=== PATIENT | male | born 1955 | race Caucasian/White ===

== ENCOUNTER 2022-04-13 11:09 | Outpatient (REF) | payer MEDICARE, MEDICAID, SELFPAY ==
[2022-04-13 14:23] LABS: MANUAL DIFF FLAG NO
[2022-04-13 14:30] LABS: Basophils Percent Auto 0.6 % (0-2); Eosinophils Absolute Auto 0.1 X10*3/uL (0.0-0.4); Eosinophils Percent Auto 1.2 % (0-4); Hematocrit 46.3 % (42.0-52.0); Hemoglobin 15.2 g/dl (14.0-18.0); Imm Gran Abs Auto 0.03 X10*3/uL (0.00-0.03); Imm Gran Pct Auto 0.4 % (0.0-0.4); Lymphocytes Percent Auto 26.8 % (20-40); Mean Corpuscular HGB Conc 32.8 g/dl (31.0-36.0); Mean Corpuscular Hemoglobin 29.7 pg (27.0-33.0); Mean Corpuscular Volume 90.4 fL (80.0-98.0); Mean Platelet Volume 9.4 fL (9.4-12.4); Monocytes Absolute Auto 0.6 X10*3/uL (0.1-1.2); Monocytes Percent Auto 8.7 % (2-11); Neutrophils Absolute Auto 4.5 x10*3/uL (2.0-8.3); Neutrophils Percent Auto 62.3 % (45-73); Platelet Count 298 X10*3/uL (160-400); Red Blood Count 5.12 X10*6/uL (4.60-5.80); Red Cell Distribution Width 13.4 % (11.0-16.0); White Blood Count 7.3 X10*3/uL (4.8-10.8)
[2022-04-13 14:49] LABS: Alanine Aminotransferase 24 U/L (0-40); Albumin Level 4.2 g/dL (3.5-5.0); Alkaline Phosphatase 66 U/L (39-117); Anion Gap 14 (12-20); Aspartate Amino Transferase 19 U/L (5-37); Bilirubin Total 0.7 mg/dL (0.0-1.0); Blood Urea Nitrogen 24 mg/dL (9-16); Calcium 9.4 mg/dL (8.4-10.2); Carbon Dioxide 27 mmol/L (22-29); Chloride 104 mmol/L (96-108); Cholesterol 226 mg/dL; Estimated Glomerular Filt Rate > 60; Glucose Fasting 92 mg/dL (60-99); HDL Cholesterol 54 mg/dL; LDL Cholesterol Calculated 165 mg/dl; Potassium 4.2 mmol/L (3.3-5.1); Sodium 141 mmol/L (135-145); Total Protein 7.5 g/dL (6.5-8.0); Triglycerides 39 mg/dL
[2022-04-13 15:13] LABS: Erythrocyte Sedimentation Rate 8 MM/HR (0-15)
[2022-04-13 15:46] LABS: PSA,Total (Free>4and<10) 6.42 ng/mL (0.00-4.00)
[2022-04-14 10:07] LABS: Percent Free Prostate Spec Ag 15 % (calc) (>25); Prostate Specific Ag Total 6.8 ng/mL (< OR = 4.0)
== END 2022-04-13 11:10 | disposition home or self-care (01) ==
LOC: HO.HMGCLDS 11:09
PROVIDERS: PCP Internal Medicine; Visit Provider Internal Medicine
DX: Z12.5 Encounter for screening for malignant neoplasm of prostate (principal); E78.5 Hyperlipidemia, unspecified; R68.84 Jaw pain
CPT/HCPCS: 36415; 80053; 80061; 84153; 84154; 85025; 85652

== ENCOUNTER 2022-04-20 13:30 | Outpatient (REF) | payer MEDICARE, MEDICAID, SELFPAY ==
--- NOTE | ~2022-04-20 | XR_ITS ---
EXAMINATION: XR MANDIBLE CLINICAL INFORMATION: Pain. COMPARISON: None. TECHNIQUE: 3 views of the mandible were obtained. FINDINGS: There are no fractures or dislocations. No bone, joint or soft tissue abnormality is demonstrated. XR/XR mandible min 4V IMPRESSION: Unremarkable examination.
== END 2022-04-20 13:31 | disposition home or self-care (01) ==
LOC: HO.HMGCX 13:30
PROVIDERS: PCP Internal Medicine; Visit Provider Internal Medicine
DX: R68.84 Jaw pain (principal)
CPT/HCPCS: 70110

== ENCOUNTER 2022-12-20 11:49 | Outpatient (REF) | payer MEDICARE, MEDICAID, SELFPAY ==
--- NOTE | ~2022-12-20 | XR_ITS ---
EXAMINATION: XR CHEST CLINICAL INFORMATION: Cough. COMPARISON: Chest x-ray August 28 2008 TECHNIQUE: Frontal view of the chest was obtained. FINDINGS: No significant abnormality is noted involving the heart, lungs, mediastinum, bony thorax or soft tissues. XR/XR chest 1V IMPRESSION: Unremarkable examination.
== END 2022-12-20 11:50 | disposition home or self-care (01) ==
LOC: HO.HMGCX 11:49
PROVIDERS: PCP Internal Medicine; Visit Provider Internal Medicine
DX: R05.9 Cough, unspecified (principal); R09.82 Postnasal drip
CPT/HCPCS: 71045

== ENCOUNTER 2024-11-01 09:16 | Outpatient (REF) | payer MEDICARE, MEDICAID, SELFPAY ==
--- OUTSIDE RECORDS SUMMARY | 2024-11-01 09:20 | XMS_ITS | Data Portability ---
Author Organization [facility] [address] Address [address] [place] [address] Assessment No assessment recorded. Plan of Treatment Reminders Order Date Submit Date Provider Last Modified By Organization Details Last Modified Time Details Appointments None recorded. Lab rapid SARS CoV 2 Ag, QL IA, respiratory specimen 2022 023 [email or web address] 5 [facility], [address] [place] [address], [id number], 14:31:31 Referral None recorded. Procedures None recorded. Surgeries None recorded. Imaging None recorded. Medication Orders None recorded. Patient TargetsNo targets recorded. Patient Instructions Encounter Date Encounter Id Patient Instructions Last Modified By Organization Details Last Modified Time 10/21/2022 [id number] learning about coronavirus (covid-19) [email or web address] Not available 10/21/2022 14:32:18 COVID-19 Viral Test: About This Test [email or web address] Not available 10/21/2022 14:32:18 See printed instructions. Follow-up with your doctor as needed. [email or web address] Not available 10/21/2022 14:32:18 Reason for Referral None Reported. Results Created Date Observation Date Name Description Value Unit Range Abnormal Flag Note LastModifiedBy Organization Detail LastModifiedTime 10/22/19 23 10/21/2022 rapid SARS CoV 2 Ag, QL IA, respi rator y speci men Unknown Analyte Normal =Negat james Not Available [facility] [address] [place] [address], [phone], 10/21/2022 14:13:57 10/22/19 23 10/21/2022 rapid SARS CoV 2 Ag, QL IA, respi rator y speci men Unknown Analyte negati ve Not Available [address], [place], [address], 10/21/2022 14:13:57 Result Notes None recorded. Problems No Known Problems Medical Equipment None Reported. Allergies No known drug allergies Medications Not known to be on any medication Vitals Date Recorded Body height Body mass index (BMI) Body weight Oxygen saturation Oxygen saturation in Arterial blood by Pulse oximetry Pain severity - 0-10 verbal numeric rating [Score] - Reported Heart rate Respiratory rate Body temperature Systolic blood pressure Diastolic blood pressure Provider Name and Address Organization Details Last Updated DateTime 170.18 cm 26.6 kg/m2 06278.7 g 98 % 98 % 0 68 /min 20 /min 97.7 [degF] 132 mm[Hg] 82 mm[Hg] Serena Deshpande PA [facility] 14:08:46 Social History Question Answer Notes LastModified by [employer] ion Details LastModified Time Tobacco Smoking Status Never Smoker Serena cornell PA - [facility] 10/21/2022 14:07:21 What Is Your Level Of Alcohol Consumption? None Information not available 10/21/2022 Have You Had Direct Contact, Or Contact During Intimacy, With Monkeypox Rash, Scabs, Or Body Fluids From A Person With Monkeypox? No Information not available 10/21/2022 Do You Use Any Illicit Or Recreational Drugs? No Information not available 10/21/2022 Have You Recently Traveled Abroad? No Information not available 10/21/2022 Do You Or Have You Ever Used Any Other Forms Of Tobacco Or Nicotine? No Information not available 10/21/2022 Sex: Unknown Functional Status None recorded. Mental Status None recorded. Family History Relationship Description Onset Age of this Age Resolved Age Notes LastModified by Organization Details LastModified Time Father No current problems or disability Not available 10/21 14:07:16 Mother No current problems or disability Not available 10/21 14:07:16 Medical History No medical history recorded. Past Encounters Encounter ID Performer Location Encounter Start Date Encounter Closed Date Diagnosis/Indication Diagnosis SNOMED-CT Code Diagnosis ICD10 Code Diagnosis Note [id number] Viviane Hinojosa MD [address] [place] [address] 10/21/2022 13:30:42 10/21/2022 14:34:49 Viral screening 745508340 Z11.52 Health Concerns Section Related Observation LastModified by Organization Detai ls LastModified Time None Recorded Concern Status LastModified by Organization Details LastModified Time None Recorded Advance Directives Directive None Recorded Payers Encounter Date Sequence Insurance Name Policy Number Policy Singh Covered Member ID Singh Member ID Guarantor Name 10/21/2022 1 [place]IC[place] B-[place]: [employer] Tucker Trentsidrazynski [id number] Tucker Scarletzynheraclioi Notes Date Note Type Note Provider Name and Address Organization Details Recorded Time 3 text/html Generic HPI TemplateReported bypatient.source of patient informationInformation obtained from patient; Patient arrived at Urgent Care ambulatory Quality:No complaints. Severity:No symptoms. Context:Leaving for [place] tomorrow. Needs negative covid test. Aggravating factors:None. Alleviating factors:None. Associated Symptoms:No other complaintsNotes:67 year old male presenting for routine covid 19 testing in order to travel to [place] tomorrow. He has no symptoms. Viviane Hinojosa MD [address] [place] [address] [place], [address], [place] - [facility] 10/21/2022 14:38:44
[2024-11-01 11:19] LABS: MANUAL DIFF FLAG NO
[2024-11-01 11:21] LABS: Basophils Percent Auto 0.5 % (0-2); Eosinophils Absolute Auto 0.1 X10*3/uL (0.0-0.4); Eosinophils Percent Auto 0.8 % (0-4); Hematocrit 43.4 % (42.0-52.0); Hemoglobin 14.7 g/dl (14.0-18.0); Imm Gran Abs Auto 0.01 X10*3/uL (0.00-0.03); Imm Gran Pct Auto 0.2 % (0.0-0.4); Lymphocytes Absolute Auto 1.7 X10*3/uL (1.2-4.9); Lymphocytes Percent Auto 26.4 % (20-40); Mean Corpuscular HGB Conc 33.9 g/dl (31.0-36.0); Mean Corpuscular Hemoglobin 30.2 pg (27.0-33.0); Mean Corpuscular Volume 89.1 fL (80.0-98.0); Mean Platelet Volume 9.2 fL (9.4-12.4); Monocytes Absolute Auto 0.5 X10*3/uL (0.1-1.2); Monocytes Percent Auto 7.4 % (2-11); Neutrophils Absolute Auto 4.1 x10*3/uL (2.0-8.3); Neutrophils Percent Auto 64.7 % (45-73); Platelet Count 259 X10*3/uL (160-400); Red Blood Count 4.87 X10*6/uL (4.60-5.80); Red Cell Distribution Width 13.8 % (11.0-16.0); White Blood Count 6.4 X10*3/uL (4.8-10.8)
[2024-11-01 11:26] LABS: Appearance Urine Turbid; Color Urine Yellow; Glucose Urine UA Negative (Negative); Leukocyte Esterase Urine Negative (Negative); Nitrite Urine Negative (Negative); Urine Blood Negative (Negative); Urine Ketones Negative (Negative); Urine Protein Negative (Neg-Trace)
[2024-11-01 11:33] LABS: Bacteria Urine None Seen (None Seen); Hyaline Casts Urine 0-2 /LPF (0-2); RBC Urine 0-2 /HPF (0-2); Squamous Epithelial Cell Urine 0-2 /HPF (0-2); WBC Urine 0-5 /HPF (0-5)
[2024-11-01 11:36] LABS: Alanine Aminotransferase 18 U/L (0-40); Albumin Level 4.1 g/dL (3.5-5.0); Alkaline Phosphatase 54 U/L (39-117); Anion Gap 10 (12-20); Aspartate Amino Transferase 22 U/L (5-37); Bilirubin Total 0.7 mg/dL (0.0-1.0); Blood Urea Nitrogen 19 mg/dL (9-16); Carbon Dioxide 26 mmol/L (22-29); Chloride 110 mmol/L (96-108); Cholesterol 219 mg/dL (<200); Estimated Glomerular Filt Rate > 60; Glucose Fasting 98 mg/dL (60-99); HDL Cholesterol 54 mg/dL (>40); LDL Cholesterol Calculated 155 mg/dL (<100); Potassium 3.7 mmol/L (3.3-5.1); Sodium 142 mmol/L (135-145); Total Protein 7.5 g/dL (6.5-8.0); Triglycerides 52 mg/dL (<150)
[2024-11-01 12:01] LABS: PSA,Total (Free>4and<10) 7.74 ng/mL (0.00-4.00)
[2024-11-04 12:09] LABS: Free Prostate Spec Ag 1.2 ng/mL; Percent Free Prostate Spec Ag 17 % (calc) (>25)
== END 2024-11-01 09:17 | disposition home or self-care (01) ==
LOC: HO.HMGCLDS 09:16
PROVIDERS: PCP Internal Medicine; Referring Provider Urology; Visit Provider Internal Medicine
DX: Z00.00 Encounter for general adult medical examination without abnormal findings (principal); R97.20 Elevated prostate specific antigen [PSA]; Z12.5 Encounter for screening for malignant neoplasm of prostate
CPT/HCPCS: 36415; 80053; 80061; 81001; 84153; 84154; 85025

== ENCOUNTER 2024-11-28 12:19 | Outpatient (AMB) | payer MEDICARE, MEDICAID, SELFPAY ==
--- NOTE | 2024-11-28 12:32 | MHC.PC.OV ---
Vital Signs 11/28/24 12:38 Height 5 ft 7 in Weight 173 lb BMI 27.1 BP 132/76 Blood Pressure Location Lt brachial Position Sitting Respiration 18 Pulse 76 Pulse Source Pulse Oximeter Temp 98.2 F Temp Source Oral Pulse Oximetry (%) 96 Oxygen Delivery Method Room Air Intake Visit Reasons: PE, review test results Intake Note: Pt is here today for PE. Allergies No Known Allergies Allergy (Unverified 11/28/24 12:52) Medication List - Last Reconciled 11/28/24 by Yenni Ayala MD No Known Home Meds Tobacco use date assessed: 11/28/24 Fall risk assessment: No Falls in past year Last assessed Fall Risk: 11/28/24 Dental Screening Dental Screen Date: 11/28/24 Did you have a dental visit in the last 12 months?: Yes Did you have a dental problem in the last 6 months where you did not have access to dental care?: No Was dental information given to patient?: Patient has dentist HPI PE, review test results HPI Details Pt presents for PE. [facility] Medical History (Updated 11/28/24 @ 13:27 by Yenni Ayala MD) History of needle biopsy of prostate with negative result Surgical History (Updated 11/28/24 @ 13:25 by Yenni Ayala MD) H/O colonoscopy Family History Father No problems noted. Mother No problems noted. Social History (Updated 11/28/24 @ 13:24 by Yneni Ayala MD) Household Members Other:: exercise 5 x week, Housing: House Patient Tobacco Use Status: Never used Tobacco e-Cigarette/Vaping Use: Never Used service: No Current occupational status: retired Cognitive needs: No Hearing needs: No Vision needs: Yes Questionnaire PHQ-9 Over the last 2 weeks, how often have you been bothered by any of the following problems? 1. Little interest or pleasure in doing things: not at all 2. Feeling down, depressed, or hopeless: not at all 3. Trouble falling or staying asleep, or sleeping too much: not at all 4. Feeling tired or having little energy: not at all 5. Poor appetite or overeating: not at all 6. Feeling bad about yourself - or that you are a failure or have let yourself or your family down: not at all 7. Trouble concentrating on things, such as reading the newspaper or watching television: not at all 8. Moving or speaking so slowly that other people could have noticed. Or the opposite - being so fidgety or restless that you have been moving around a lot more than usual: not at all 9. Thoughts that you would be better off or of hurting yourself in some way: not at all Total score: 0 Depression Screening Interpretation: Negative Depression Screening Done: Yes 59164 - PHQ-9 Billing: Yes Source: Developed by Drs. Mandeep Anna, Lynda Uribe, Fili Brennan and colleagues, with an educational chasity from [employer]. Thrive Questionnaire Date Thrive assessed: 11/28/24 I am a: Patient What is your living situation today?: I have a steady place to live Within the past 12 months, did the food you bought not last and you didn't have the money to get more?: Never true Within the past 12 months, did you worry whether your food would run out before you got money to buy more?: Never true Do you have trouble paying for medicines?: No Do you have trouble getting transportation to medical appointments?: No Do you have trouble paying your heating and electricity bill?: No Do you have trouble taking care of your child, family member or friend?: No Do you have trouble with day-to-day activities such as bathing, preparing meals, shopping, managing finances, etc.?: No Are you currently unemployed and looking for a job?: No Are you interested in more education?: No Please select the resources that you would like help with: None THRIVE Score: 0 AUDIT C Alcohol Use Questionnaire (AUDIT-C) 1. How often do you have a drink containing alcohol?: Monthly or less 2. How many drinks containing alcohol do you have on a typical day when you are drinking?: 1 or 2 3. How often do you have six or more drinks on one occasion?: Never Total Score: 1 ELIEL-7 AMB Questionnaire ELIEL-7 Date ELIEL - 7 assessed: 11/28/24 Feeling nervous, anxious, or on edge: 0 = Not at all Not being able to stop or control worryin = Not at all Worrying too much about different things: 0 = Not at all Trouble relaxin = Not at all Being so restless that it is hard to sit still: 0 = Not at all Becoming easily annoyed or irritable: 0 = Not at all Feeling afraid as if something awful might happen: 0 = Not at all Total ELIEL-7 score (0-4 normal; 5-9 mild; 10-14 moderate; 15-21 severe): 0 Source: Developed by Drs. Mandeep Anna, Lynda Uribe, Fili Brennan and colleagues, with an educational chasity from [employer]. ELIEL-7 Assessment Billing ELIEL-7 Assessment Tool: ELIEL-7 Assessment 03679 Review of Systems Const All systems reviewed & are unremarkable except as noted in HPI and below Eyes Reports no additional complaints ENT Reports no additional complaints Card Reports no additional complaints Resp Reports no additional complaints GI Reports no additional complaints Reports no additional complaints Musc Reports no additional complaints Physical exam (Primary Care) Vital Signs: Last Vital Signs Temp 98.2 F 11/28/24 12:38 Pulse 76 11/28/24 12:38 Resp 18 11/28/24 12:38 BP 132/76 11/28/24 12:38 Pulse Ox 96 11/28/24 12:38 Oxygen Delivery Method Room Air 11/28/24 12:38 BMI result Body Mass Index 27.1 Tobacco/Smoking Status: Tobacco use Status Tobacco use date assessed 11/28/24 11/28/24 12:56 Patient Tobacco Use Status Never used Tobacco 11/28/24 12:32 e-Cigarette/Vaping Use Never Used 11/28/24 12:32 PHQ-9: PHQ-9 Score PHQ-9: Total score 0 11/28/24 12:53 Depression Screening Interpretation: Negative Thrive Assessment: Date of Thrive Assessment Date Thrive assessed 11/28/24 11/28/24 12:53 Const General: no acute distress HENMT Head: Yes normal to inspection Face and sinus: Yes normal facial exam Mouth: Normal oral and palatal mucosa present Throat: Yes posterior oropharynx normal Eyes General: appearance normal, both eyes and all related structures Neck Neck: Yes no lymphadenopathy and Yes supple Resp Effort & Inspection: normal respiratory effort Auscultation: clear to auscultation bilaterally Cardio Rhythm: regular rhythm Heart sounds: S1 normal heart sound present and S2 normal heart sound present GI Inspection: Yes normal to inspection Palpation (GI): Soft to palpation Percussion: Yes normal to percussion Auscultation: normal bowel sounds Coding Level of Care Code Est Pt Prev Care >65y(01065) Diagnoses Elevated PSA R97.20 Annual physical exam Z00.00 Additional Codes ELIEL-7 Assessment Billing - ELIEL-7 Assessment Tool: ELIEL-7 Assessment 23121 ([id number]) PHQ-9 - 68330 - PHQ-9 Billing: Yes ([id number]) Assessment & Plan Assessment & Plan (1) Elevated PSA: Comment: f/u [facility] urology q 6 months Code(s): R97.20 - Elevated prostate specific antigen [PSA] Category: Medical Plan: Follow-up with Urology (2) Annual physical exam: Code(s): Z00.00 - Encounter for general adult medical examination without abnormal findings Category: Medical Plan: well balanced diet, regular exercise, low-cholesterol diet discussed with the patient. She is up-to-date with colonoscopy Orders: Orders Comprehensive [place]. Panel Fast 1 Year Z00.00 - Encounter for general adult medical examination without abnormal findings Complete Blood Count Auto Diff 1 Year Z00.00 - Encounter for general adult medical examination without abnormal findings Lipid Panel 1 Year Z00.00 - Encounter for general adult medical examination without abnormal findings UA w Microscopic 1 Year Z00.00 - Encounter for general adult medical examination without abnormal findings
--- OUTSIDE RECORDS SUMMARY | 2024-11-28 12:32 | XMS_ITS | Data Portability ---
Author Organization [facility] [address] Address [address] [place] [address] Assessment No assessment recorded. Plan of Treatment Reminders Order Date Submit Date Provider Last Modified By Organization Details Last Modified Time Details Appointments None recorded. Lab rapid SARS CoV 2 Ag, QL IA, respiratory specimen 2022 023 [email or web address] 5 [facility], [address] [place] [address], [phone], 14:31:31 Referral None recorded. Procedures None recorded. Surgeries None recorded. Imaging None recorded. Medication Orders None recorded. Patient TargetsNo targets recorded. Patient Instructions Encounter Date Encounter Id Patient Instructions Last Modified By Organization Details Last Modified Time 10/21/2022 [id number] learning about coronavirus (covid-19) [email or web address] Not available 10/21/2022 14:32:18 COVID-19 Viral Test: About This Test [email or web address] Not available 10/21/2022 14:32:18 See printed instructions. Follow-up with your doctor as needed. Not available 10/21/2022 14:32:18 Reason for Referral None Reported. Results Created Date Observation Date Name Description Value Unit Range Abnormal Flag Note LastModifiedBy Organization Detail LastModifiedTime 10/22/19 23 10/21/2022 rapid SARS CoV 2 Ag, QL IA, respi rator y speci men Unknown Analyte Normal =Negat james Not Available [facility] [address] [place] [address], [phone], 10/21/2022 14:13:57 10/22/19 23 10/21/2022 rapid SARS CoV 2 Ag, QL IA, respi rator y speci men Unknown Analyte negati ve Not Available [address], [place], [address], 10/21/2022 14:13:57 Result Notes None recorded. Problems [...] Last Updated DateTime 170.18 cm 26.6 kg/m2 83091.7 g 98 % 98 % 0 68 /min 20 /min 97.7 [degF] 132 mm[Hg] 82 mm[Hg] Serena Deshpande PA [facility] 14:08:46 Social History Question Answer Notes LastModified by [employer] Details LastModified Time Tobacco Smoking Status Never Smoker Serena cornell PA - [facility] 10/21/2022 14:07:21 What Is Your Level [...] SNOMED-CT Code Diagnosis ICD10 Code Diagnosis Note [id number] Viviane Hinojosa MD [address] [place] [phone] 10/21/2022 13:30:42 10/21/2022 14:34:49 Viral screening [id number] Z11.52 Health Concerns Section Related Observation LastModified by Organization Detai ls LastModified Time None Recorded Concern Status LastModified by Organization Details LastModified Time None Recorded Advance Directives Directive None Recorded Payers Insurance Date Sequence Insurance Name Policy Number Policy Singh Covered Member ID Singh Member ID Guarantor Name 10/21/2022 1 [place]: [employer] SERVICES Tucker Shane [id number] Tucker Shane 11/22/2022 2 UNSPECIFIED REMIT PAYOR Tucker Shane Notes Date Note Type Note Provider Name and Address Organization Details Recorded Time 3 text/html Generic HPI TemplateReported bypatient.source of patient informationInformation obtained from patient; Patient arrived at Urgent Care ambulatory Quality:No complaints. Severity:No symptoms. Context:Leaving for [place] tomorrow. Needs negative covid test. Aggravating factors:None. Alleviating factors:None. Associated Symptoms:No other complaintsNotes:67 year old male presenting for routine covid 19 testing in order to travel to [place] tomorrow. He has no symptoms. Viviane Hinojosa MD [address] [place], [place] [address], [address], [place] - [facility] 10/21/2022 14:38:44
[2024-11-28 12:38] VITALS: BP 132/76; PULSE 76; RESP 18; TEMP 36.8; O2SAT 96; BMI 27.1
== END 2024-11-28 13:30 | disposition home or self-care (01) ==
LOC: HO.HMCC 12:20
PROVIDERS: PCP Internal Medicine; Visit Provider Internal Medicine
DX: Z00.00 Encounter for general adult medical examination without abnormal findings (principal); R97.20 Elevated prostate specific antigen [PSA]

== ENCOUNTER → 2024-11-28 12:19 | Outpatient (BNVA) | payer MEDICARE, MEDICAID, SELFPAY | PROVIDERS: PCP Internal Medicine; Visit Provider Internal Medicine | DX: Z00.00 Encounter for general adult medical examination without abnormal findings (principal); R97.20 Elevated prostate specific antigen [PSA] | CPT/HCPCS: 96127; 99397 ==